=== PATIENT | female | born 1985 ===

== ENCOUNTER 2021-12-29 10:28 | Outpatient (CLI) | payer OTHER | END 2021-12-29 12:00 | disposition home or self-care (01) | LOC: PRENATAL 10:28 | PROVIDERS: ATTEND Obstetrics & Gynecology Maternal & Fetal Medicine | DX: O36.80X0 Pregnancy with inconclusive fetal viability, not applicable or unspecified (principal); O09.519 Supervision of elderly primigravida, unspecified trimester; O99.210 Obesity complicating pregnancy, unspecified trimester; Z3A.14 14 weeks gestation of pregnancy ==

== ENCOUNTER 2022-02-16 09:15 | Outpatient (CLI) | payer OTHER | END 2022-02-16 11:16 | disposition home or self-care (01) | LOC: PRENATAL 09:15 | PROVIDERS: ATTEND Obstetrics & Gynecology Maternal & Fetal Medicine | DX: O35.9XX0 Maternal care for (suspected) fetal abnormality and damage, unspecified, not applicable or unspecified (principal); O99.210 Obesity complicating pregnancy, unspecified trimester; O35.3XX0 Maternal care for (suspected) damage to fetus from viral disease in mother, not applicable or unspecified; Z3A.20 20 weeks gestation of pregnancy ==

== ENCOUNTER 2022-05-08 09:42 | Outpatient (CLI) | payer OTHER | END 2022-05-08 13:21 | disposition home or self-care (01) | LOC: PRENATAL 09:42 | PROVIDERS: ATTEND Obstetrics & Gynecology Maternal & Fetal Medicine | DX: O26.849 Uterine size-date discrepancy, unspecified trimester (principal); O35.9XX0 Maternal care for (suspected) fetal abnormality and damage, unspecified, not applicable or unspecified; O09.519 Supervision of elderly primigravida, unspecified trimester; O99.210 Obesity complicating pregnancy, unspecified trimester; Z3A.32 32 weeks gestation of pregnancy ==